=== PATIENT | female | born 1975 | race African-American/Black ===

== ENCOUNTER 2020-05-16 18:00 | Emergency (ER) | payer MEDICAID ==
[~2020-05-16] VITALS: Ht 180.3 cm; Wt 93.4 kg
[2020-05-16 19:17] LABS: Eosinophils # (auto) 0 10 ^3/uL (0-0.8); Eosinophils % (auto) 0.2 % (0.0-7.0); Neutrophils # (auto) 6.7 10 ^3/uL (1.6-8.6)
[2020-05-16 19:19] LABS: Basophils # (auto) 0 10 ^3/uL (0-0.2); Basophils % (auto) 0.5 % (0.0-2.0); Hematocrit 30.3 % (36.0-46.0); Lymphocytes % (auto) 21.7 % (10.0-50.0); Mean Corpuscular Hemoglobin 19.5 pg (28.0-32.0); Mean Corpuscular Hgb Conc. 29.7 g/dL (32.0-36.0); Mean Corpuscular Volume 65.7 fL (80.0-100.0); Monocytes # (auto) 0.5 10 ^3/uL (0-1.3); Monocytes % (auto) 5.1 % (0.0-12.0); Neutrophils % (auto) 72.5 % (37.0-80.0); Platelet Count (auto) 247 10^3/uL (140-450); Red Blood Cells 4.61 10^6/uL (4.0-5.20); Red Cell Distribution Width 19.1 % (11.8-14.3); White Blood Cell 9.3 10^3/uL (4.4-10.8)
[2020-05-16 19:35] LABS: Albumin 3.5 g/dL (3.4-5.0); Anion Gap 3 (5-15); Blood Urea Nitrogen 13 mg/dL (7-18); Calcium 8.6 mg/dL (8.5-10.1); Carbon Dioxide 26 mmol/L (21-32); Chloride 108 mmol/L (98-107); Glucose 98 mg/dL (74-106); Magnesium 2.2 mg/dL (1.6-2.6); Potassium 3.8 mmol/L (3.5-5.1); Sodium 137 mmol/L (136-145)
[2020-05-16 19:38] LABS: Partial Thromboplastin Time 21.9 sec (23.0-31.2)
[2020-05-16 19:41] LABS: Alanine Aminotransferase 28 U/L (13-56); Alkaline Phosphatase 61 U/L (45-117); Aspartate Aminotransferase 19 U/L (15-37); BUN/Creatinine Ratio 11.7; Bilirubin, Total 0.2 mg/dL (0.2-1.0); GFR African American 68 mL/min; GFR Non-African American 56 mL/min; Total Protein 7.8 g/dL (6.4-8.2)
[2020-05-16 20:09] LABS: Urine Bacteria NONE SEEN /hpf (None Seen); Urine Blood Negative /uL (Negative); Urine Mucus FEW (None Seen); Urine Specific Gravity 1.025 (1.001-1.035); Urine WBC 9 /hpf (0 - 5)
[2020-05-16 21:30] VITALS: BP 153/101
== END 2020-05-16 23:08 | disposition home or self-care (01) ==
LOC: ER 18:00
DX: R07.89 Other chest pain (principal); N39.0 Urinary tract infection, site not specified; F17.210 Nicotine dependence, cigarettes, uncomplicated; J44.9 Chronic obstructive pulmonary disease, unspecified; Z88.0 Allergy status to penicillin; Z88.6 Allergy status to analgesic agent
CPT/HCPCS: 36415; 71046; 80053; 81001; 83735; 83880; 84443; 84484; 85025; 85610; 85730; 93005

== ENCOUNTER 2020-08-08 02:59 | Emergency (ER) | payer MEDICAID ==
[~2020-08-08] VITALS: Ht 180.3 cm; Wt 79.4 kg
[2020-08-08] MEDS ORDERED: IOHEXOL 350 MG/ML 100ML IJ ONE (03:57)
[2020-08-08 06:00] VITALS: BP 148/92
== END 2020-08-08 06:56 | disposition home or self-care (01) ==
LOC: ER 03:01
DX: R07.9 Chest pain, unspecified (principal); R00.2 Palpitations; R61 Generalized hyperhidrosis; Z87.891 Personal history of nicotine dependence; Z88.6 Allergy status to analgesic agent; Z88.0 Allergy status to penicillin
CPT/HCPCS: 71045; 71275; 93005; 99285; Q9967